=== PATIENT | female | born 1965 | race Hispanic/Latino ===

== ENCOUNTER 2018-02-02 00:16 | Emergency (ER) | payer MEDICAID ==
[2018-02-02 00:16] VITALS: BMI 33.2
[2018-02-02] MEDS ORDERED: Sodium Chloride 0.9% 1,000 ML IV STA ×2 (00:43→00:57)
--- NOTE | 2018-02-02 01:19 | ED PDOC ---
HPI: Abdomen Time Seen by Provider: 02/02/18 00:25 Chief Complaint (Nursing): Abdominal Pain Chief Complaint (Provider): Flank pain History Per: Patient History/Exam Limitations: no limitations Onset/Duration Of Symptoms: Hrs (x 3) Current Symptoms Are (Timing): Still Present Quality Of Discomfort: "Pain" Associated Symptoms: Vomiting. denies: Urinary Symptoms Additional Complaint(s): 52 year old female with HTN, DM, UTIs and kidney tumor presents to the ED with severe, constant right sided flank pain and vomiting that began earlier this evening. Patient reports several episodes of nbnb vomiting tonight. She has had similar pain in the past due to kidney tumor which was since removed. Denies urinary symptoms, diarrhea and fever. PMD: [place] Past Medical History Reviewed: Historical Data, Nursing Documentation, Vital Signs Vital Signs: Last Vital Signs Temp 98.5 F 02/02/18 04:05 Pulse 84 02/02/18 04:05 Resp 16 02/02/18 04:05 BP 151/71 H 02/02/18 04:05 Pulse Ox 98 02/02/18 04:05 - Medical History PMH: Diabetes, Gastrointestinal Ulcer, Hiatal Hernia, HTN, Hypercholesterolemia , Hyperlipidemia, Malignancy ("KIDNEY CANCER"), Obstructive Bowel (SBO), Chronic Kidney Disease - Surgical History Surgical History: Appendectomy, Cholecystectomy, Endoscopy, Hernia Repair - Family History Family History: States: Unknown Family Hx - Immunization History Hx Tetanus Toxoid Vaccination: No Hx Influenza Vaccination: Yes Hx Pneumococcal Vaccination: No - Home Medications Home Medications: Ambulatory Orders Medication Instructions Recorded Atorvastatin [Lipitor] 20 mg PO DAILY 08/13/16 Insulin Lispro [Humalog (Insulin 100 unit SQ AC 08/13/16 Lispro)] Valsartan [Diovan] 160 mg PO DAILY 08/13/16 Insulin Glargine,Hum.rec.anlog 20 unit SQ HS 03/24/17 [Basaglar Kwikpen U-100] Insulin Lispro [Humalog Kwikpen 15 unit SQ TID 03/24/17 U-100] Omeprazole 40 mg PO DAILY 03/24/17 Spironolactone [Aldactone] 25 mg PO DAILY 03/24/17 metFORMIN [glucOPHAGE] 500 mg PO BID 03/24/17 Cephalexin [Keflex] 500 mg PO TID #21 capsule 11/18/17 Ciprofloxacin HCl [Cipro] 500 mg PO BID #14 tab 02/02/18 traMADol [Ultram] 50 mg PO TID PRN #15 tab 02/02/18 - Allergies Allergies/Adverse Reactions: Allergies Allergy/AdvReac Type Severity Reaction Status Date / Time No Known Allergies Allergy Verified 11/18/17 10:25 Review of Systems ROS Statement: Except As Marked, All Systems Reviewed And Found Negative Constitutional: Negative for: Fever Gastrointestinal: Positive for: Vomiting (several episodes). Negative for: Diarrhea Genitourinary Female: Negative for: Dysuria, Frequency, Incontinence, Hematuria Musculoskeletal: Positive for: Other (right sided flank pain) Physical Exam - Reviewed Nursing Documentation Reviewed: Yes Vital Signs Reviewed: Yes - Physical Exam Appears: Positive for: No Acute Distress, Uncomfortable Head Exam: Positive for: ATRAUMATIC, NORMAL INSPECTION, NORMOCEPHALIC Skin: Positive for: Normal Color, Warm, Dry Eye Exam: Positive for: EOMI, Normal appearance, PERRL Neck: Positive for: Normal, Painless ROM Cardiovascular/Chest: Positive for: Regular Rate, Rhythm. Negative for: Murmur Respiratory: Positive for: Normal Breath Sounds. Negative for: Wheezing, Respiratory Distress Gastrointestinal/Abdominal: Positive for: Normal Exam, Soft, Other (multiple scars present on right flank). Negative for: Tenderness Back: Positive for: R CVA Tenderness. Negative for: Normal Inspection Extremity: Positive for: Normal ROM (all extremities). Negative for: Deformity Neurologic/Psych: Positive for: Alert, Oriented (x 3). Negative for: Motor/ Sensory Deficits - Laboratory Results Result Diagrams: 02/02/18 01:23 02/02/18 01:23 - ECG O2 Sat by Pulse Oximetry: 96 (RA) Pulse Ox Interpretation: Normal Medical Decision Making Medical Decision Makin:42 Impression: right flank pain and vomiting Differential diagnoses include but are not limited to: UTI, kidney stones, kidney mass Initial Plan: --CT Abd & Pelvis --CMP --lipase --Urine rpeg --urine dip --CBC --NS IV --Toradol 30 mg IVP --Zofran inj 4 mg IVP --urine cx 02:19 CT Abd & pelvis FINDINGS: Lung bases: There is LEFT basilar atelectasis. Mediastinum: A small hiatal hernia is present. ABDOMEN: Liver: The liver is within normal limits for this noncontrast study. Gallbladder and bile ducts: There has been a cholecystectomy. No ductal dilation. Pancreas: The pancreas appears normal. No ductal dilation. Spleen: The spleen is normal. Adrenals: The adrenal glands are normal. Kidneys and ureters: Patient may be post partial RIGHT renal nephrectomy. Remaining RIGHT kidney is unremarkable. The left kidney is normal. Stomach and bowel: The stomach is normal. The duodenum is unremarkable. The colon is normal. No obstruction. No mucosal thickening. PELVIS: Appendix: A normal appendix is identified. Bladder: The bladder is normal. No stones. Reproductive: The uterus is normal. ABDOMEN and PELVIS: Intraperitoneal space: Normal. No free air. No significant fluid collection. Bones/joints: No acute fracture. No dislocation. Soft tissues: There is inflammatory stranding/soft tissue thickening along the ventral abdominal wall measuring 9.5 x 2.5 x 12.2 cm possibly representing infection of the surgical incision site although other etiologies are possible. Vasculature: Normal. No abdominal aortic aneurysm. Lymph nodes: Normal. No enlarged lymph nodes. IMPRESSION: There is inflammatory stranding/soft tissue thickening along the ventral abdominal wall measuring 9.5 x 2.5 x 12.2 cm possibly representing infection of the surgical incision site although other etiologies are possible. 02:51 --Reexamined scar tissue according to CT results. No acute findings on exam. No clinical correlation found. Patient is stable and will be discharged home. Diagnosis is UTI and flank pain. Follow up with PMD in 1-2 days. Scribe Attestation: Documented by Sandra Carbone, acting as a scribe for Royce Curry MD Provider Scribe Attestation: All medical record entries made by the Scribe were at my direction and personally dictated by me. I have reviewed the chart and agree that the record accurately reflects my personal performance of the history, physical exam, medical decision making, and the department course for this patient. I have also personally directed, reviewed, and agree with the discharge instructions and disposition. Disposition - Clinical Impression Clinical Impression: Abdominal pain, UTI (urinary tract infection), Flank pain - Patient ED Disposition Is Patient to be Admitted: No Doctor Will See Patient In The: Office Counseled Patient/Family Regarding: Studies Performed, Diagnosis, Need For Followup - Disposition Referrals: Tita Hobbs MD [Medical Doctor] - Disposition: Routine/Home Disposition Time: 02:55 Condition: GOOD Additional Instructions: Take your medications as instructed. Follow up with your PCP in 2-3 days. Prescriptions: Ciprofloxacin HCl [Cipro] 500 mg PO BID #14 tab traMADol [Ultram] 50 mg PO TID PRN #15 tab PRN Reason: Pain, Severe (8-10) Instructions: Urinary Tract Infection, Adult (DC), Flank Pain
[2018-02-02 01:29] LABS: BASO # 0.1 K/uL (0.0-0.2); BASO % 0.8 % (0.0-2.0); EOS # 0.2 K/uL (0.0-0.7); HEMOGLOBIN 10.7 g/dL (12.0-16.0); LYMPH % 23.4 % (20.0-40.0); MEAN CELL VOLUME 83.2 fl (81.0-99.0); MEAN CORPUSCULAR HGB CONC 32.5 g/dL (33.0-37.0); MEAN PLATELET VOLUME 8.6 fl (7.2-11.7); MONO # 0.6 K/uL (0.0-0.8); MONO % 7.6 % (0.0-10.0); NEUT # 5.6 K/uL (1.8-7.0); NEUT % 66.2 % (50.0-75.0); RBC 3.95 Mil/uL (3.80-5.20); RED CELL DISTRIBUTION WIDTH 14.6 % (11.5-14.5); WHITE BLOOD COUNT 8.4 K/uL (4.8-10.8)
[2018-02-02 01:35] LABS: ALB/GLOB RATIO 1.3 (1.0-2.1); ALBUMIN 4.1 g/dL (3.5-5.0); ALT/SGPT 36 U/L (9-52); AST/SGOT 32 U/L (14-36); BLOOD UREA NITROGEN 21 mg/dl (7-17); CALCIUM 9.5 mg/dL (8.4-10.2); GFR AFRICAN-AMERICAN > 60; GFR NON-AFRICAN AMERICAN > 60; LIPASE 144 U/L (23-300)
[2018-02-02 04:23] VITALS: BP 151/71; PULSE 84; RESP 16; TEMP 98.5
--- NOTE | 2018-02-02 14:46 | CT ---
Date of service: 02/02/2018 PROCEDURE: CT Abdomen and Pelvis without intravenous contrast HISTORY: right flank pain COMPARISON: 05/19/2014 TECHNIQUE: Without contrast.. Contrast dose: 0 Radiation dose: Total exam DLP = 740.85 mGy-cm. This CT exam was performed using one or more of the following dose reduction techniques: Automated exposure control, adjustment of the mA and/or kV according to patient size, and/or use of iterative reconstruction technique. FINDINGS: LOWER THORAX: Minimal dependent pleural thickening posterior left lower lobe. Likely postinflammatory scar unchanged from 2014. Small hiatal hernia. Postoperative changes including suture material seen at gastroesophageal junction. LIVER: Unremarkable. No gross lesion or ductal dilatation. GALLBLADDER AND BILE DUCTS: Status post cholecystectomy PANCREAS: Unremarkable. No gross lesion or ductal dilatation. SPLEEN: Unremarkable. ADRENALS: Unremarkable. No mass. KIDNEYS AND URETERS: Unremarkable. No hydronephrosis. No solid mass. No renal or ureteral calculus. VASCULATURE: Unremarkable. No aortic aneurysm. BOWEL: Unremarkable. No obstruction. No gross mural thickening. APPENDIX: Not identified. No secondary findings. PERITONEUM: No ascites. No pneumoperitoneum. There is an old midline anterior abdominal wall surgical scar. There is soft tissue thickening along midline essentially unchanged from previous, possibly old but cannot rule out recurrent acute process. Correlate. There is cutaneous thickening about the emboli kiss possibly representing cellulitis. Again, please correlate. Two small right parasagittal ventral hernias containing only mesenteric fat. These are new since 2013. LYMPH NODES: Unremarkable. No enlarged lymph nodes. BLADDER: Nondistended REPRODUCTIVE: Normal uterus BONES: No acute fracture. OTHER FINDINGS: None. IMPRESSION: No renal or ureteral calculus. Old postsurgical scar versus recurrent acute inflammatory process along the anterior abdominal wall, midline. Possible focal cellulitis about the emboli kiss. Correlate clinically. Two small right parasagittal ventral hernias containing only mesenteric fat. Small hiatal hernia. Postoperative changes seen at gastroesophageal junction. The preliminary findings for this examination were reported by [employer] at 2:19 a.m. on 02/02/2018. There is concurrence of this report with the preliminary findings.
[2018-02-02 21:07] VITALS: O2SAT 96
== END 2018-02-02 04:05 | disposition home or self-care (01) ==
LOC: H.ER 00:16
DX: R10.9 Unspecified abdominal pain (principal); N39.0 Urinary tract infection, site not specified; N18.9 Chronic kidney disease, unspecified; I12.9 Hypertensive chronic kidney disease with stage 1 through stage 4 chronic kidney disease, or unspecified chronic kidney disease; E11.9 Type 2 diabetes mellitus without complications; Z79.4 Long term (current) use of insulin; Z85.528 Personal history of other malignant neoplasm of kidney
CPT/HCPCS: 74176; 80053; 81025; 83690; 85025; 87086; 87181; 96361; 96374; 96375; 99284; J1885; J2405; J7030